=== PATIENT | female | born 1975 | race Caucasian/White ===

== ENCOUNTER 2019-01-21 09:54 | Emergency (ER) | payer MEDICAID ==
[~2019-01-21] VITALS: Ht 167.6 cm; Wt 118.0 kg
[2019-01-21 09:57] VITALS: BP 166/116
--- NOTE | 2019-01-21 10:18 | NUR ---
MD IS AT THE BEDSIDE FOR ASSESSMENT
[2019-01-21 10:36] LABS: MICROSCOPIC INDICATED
[2019-01-21 10:37] LABS: CULTURE INDICATED? YES
== END 2019-01-21 11:27 | disposition home or self-care (01) ==
LOC: ED 10:46
DX: M54.5 Low back pain (principal); R10.9 Unspecified abdominal pain; I10 Essential (primary) hypertension; J45.909 Unspecified asthma, uncomplicated
CPT/HCPCS: 81001; 87086; 99283